=== PATIENT | male | born 1960 | race Caucasian/White ===

== ENCOUNTER 2019-03-27 06:00 | Outpatient (RCR) | payer BC, SELFPAY | END 2019-04-20 23:59 | disposition home or self-care (01) | LOC: WPT 06:00 | PROVIDERS: PCP Physician Assistant Medical; Referring Provider Physician Assistant Medical; Visit Provider Physician Assistant Medical | DX: M25.511 Pain in right shoulder (principal) | CPT/HCPCS: 97110; 97162 ==

== ENCOUNTER 2019-04-21 06:00 | Outpatient (RCR) | payer BC, SELFPAY | END 2019-05-19 23:59 | disposition home or self-care (01) | LOC: WPT 06:00 | PROVIDERS: PCP Physician Assistant Medical; Referring Provider Physician Assistant Medical; Visit Provider Physician Assistant Medical | DX: M25.511 Pain in right shoulder (principal) | CPT/HCPCS: 97110; 97112 ==

== ENCOUNTER 2021-02-17 09:07 | Outpatient (CLI) | payer OTHER, SELFPAY ==
--- NOTE | 2021-02-17 08:45 | USCV_ITS ---
Ronald Fernandez Age: 60 Gender: M : 1960 Exam Date: 02/17/2021 09:24 Ordering Phys: Socorro Garcia MD ([email or web address]) Technologist: Isac Daugherty RVT Exam Location: [facility] – [place] Indication: DM2, SMOKER, ASYMPTOMATIC Risk Factors: DM, SMOKER, ASYMPTOMATIC Previous Vascular Surgery: NONE Right Brachial BP: / Left Brachial BP: / Right Left Velocity (cm/s) Spectral Plaque Velocity (cm/s) Spectral Plaque Syst/Diast Broadening Syst/Diast Broadening 98.10/ 18.70 Prox CCA 94.00 / 18.80 86.00/ 20.90 Mid CCA 100.00/ 23.10 79.40/ 22.10 Distal CCA 97.40 / 23.10 76.90/ 19.40 Prox ICA 64.90 / 20.50 74.60/ 28.70 Mid ICA 57.30 / 18.80 87.70/ 32.40 Distal ICA 68.40 / 23.00 125.70 ECA 80.30 0.89 ICA/CCA 0.68 Antegrade Vertebral Antegrade 23.70/ 8.50 cm/s 37.80/ 10.15 cm/s Tri Subclavian Tri 87.20 97.40 CONCLUSIONS Right ICA stenosis <50%. Left ICA stenosis <50%. Normal antegrade Doppler flow noted in the right vertebral artery. Normal antegrade Doppler flow noted in the left vertebral artery. Robb Harvey MD (Electronically Signed) Final Date: 18 February 2021 08:19 S
== END 2021-02-17 09:08 | disposition home or self-care (01) ==
LOC: US 09:13
PROVIDERS: PCP Physician Assistant Medical; Visit Provider Internal Medicine Cardiovascular Disease
DX: I65.23 Occlusion and stenosis of bilateral carotid arteries (principal); E11.9 Type 2 diabetes mellitus without complications; F17.210 Nicotine dependence, cigarettes, uncomplicated
CPT/HCPCS: 93880

== ENCOUNTER 2024-05-04 15:44 | Outpatient (CLI) | payer OTHER, SELFPAY ==
--- NOTE | 2024-05-04 15:50 | USR_ITS ---
PROCEDURE INFORMATION: Exam: US Scrotum Exam date and time: 05/04/2024 3:54 PM Age: 64 years old Clinical indication: Swelling, testicles or scrotum; Additional info: Testicle swelling TECHNIQUE: Imaging protocol: Real-time ultrasound of the scrotum and contents with color Doppler and image documentation. COMPARISON: No relevant prior studies available. FINDINGS: Right testicle: Normal. No mass. Normal color Doppler and arterial waveforms. No torsion. 3.5 cm x 3.5 cm x 4.3 cm Left testicle: Left testicle measures 3 cm x 2.8 cm x 4.4 cm. . Left: 1.2 cm x 1 cm x 2.5 cm. There are benign cysts in the left testicle. Epididymides: Right: 1.3 cm x 1.1 cm x 0.8 cm Scrotum/soft tissues: Bilateral hydrocele, left side varicocele. hydroceles. US/US scrotum [id number] IMPRESSION: 1. Normal right testicular ultrasound. 2. Left testicular cysts 3. The left epididymis shows cystic lesions. 4. Varicocele left epididymis 5. Bilateral hydrocele
== END 2024-05-04 15:45 | disposition home or self-care (01) ==
LOC: RAD 15:45
PROVIDERS: PCP Family Medicine; Visit Provider Registered Nurse
DX: N50.812 Left testicular pain (principal); N44.2 Benign cyst of testis; R93.89 Abnormal findings on diagnostic imaging of other specified body structures; I86.1 Scrotal varices; N43.2 Other hydrocele
CPT/HCPCS: 76870